=== PATIENT | female | born 1940 | race Caucasian/White ===

== ENCOUNTER 2020-12-12 22:13 | Inpatient (IN) | payer MEDICARE ==
[~2020-12-12] VITALS: Ht 167.6 cm; Wt 73.0 kg
[2020-12-12 22:18] VITALS: BP 119/60
[2020-12-12 23:31] LABS: ABSOLUTE LYMPHOCYTES 1.2 thou/uL (0.8-5.3); ABSOLUTE MONOCYTES 0.7 thou/uL (0.0-1.2); ABSOLUTE NEUTROPHILS 2.6 thou/uL (1.6-8.1); BASOPHILS 0.2 %; EOSINOPHILS 0.1 %; HEMATOCRIT 22.5 % (37.0-47.0); HEMOGLOBIN 7.2 gm/dL (12.0-15.0); LYMPHOCYTES 26.8 %; MCH 30.1 pg (26.0-34.0); MCHC 32.2 g/dL (28.0-37.0); MCV 93.5 fL (80.0-100.0); MONOCYTES 14.8 %; MPV 8.5 fl. (7.2-11.1); NUCLEATED RBCS 0 /100WBC; PLATELET COUNT* 150 thou/uL (150-400); POLYS 58.1 %; RBC 2.41 mil/uL (4.20-5.00); RDW-CV 15.6 % (10.5-14.5); WBC 4.4 thou/uL (4.0-11.0)
[2020-12-12 23:38] LABS: BE 5.4 mmol/L (-2 to +3); PCO2 42.8 mmHg (35.0-45.0)
[2020-12-12 23:39] LABS: CALCIUM 7.8 mg/dL (8.5-10.1); CREATININE 1.5 mg/dL (0.6-1.3); POTASSIUM 3.1 mmol/L (3.5-5.1)
[2020-12-12 23:43] LABS: ALBUMIN 2.8 g/dL (3.4-5.0); MAGNESIUM 1.9 mg/dL (1.8-2.4); TOTAL BILIRUBIN 0.4 mg/dL (<0.1-1.0); TOTAL PROTEIN 6.4 g/dL (6.4-8.2)
[2020-12-12 23:44] LABS: PO2 52.1 mmHg (75.0-100.0)
[2020-12-13 07:59] LABS: URINE BILIRUBIN NEGATIVE (Negative); URINE BLOOD NEGATIVE (Negative); URINE CLARITY CLEAR; URINE COLOR YELLOW; URINE GLUCOSE-RANDOM NEGATIVE (Negative); URINE KETONES NEGATIVE (Negative); URINE LEUKOCYTES-REFLEX 1+ (Negative); URINE NITRITE-REFLEX NEGATIVE (Negative); URINE PROTEIN NEGATIVE (Negative); URINE UROBILINOGEN 0.2 E.U./dl (0.2-1.0)
[2020-12-13 08:11] VITALS: BP 141/49
[2020-12-13 08:43] LABS: BACTERIA-REFLEX 1-9 Few /HPF (None Seen); CRYSTALS None Seen /LPF (None Seen); HYALINE CASTS 0-3 Few /LPF (None Seen); MUCUS 0-3 Light strn/LPF (None Seen); SQUAMOUS 0-3 Few /LPF (0-3); URINE RBC 0-2 Rare /HPF (0-2); URINE WBC-REFLEX 6-15 Few /HPF (0-5)
[2020-12-13] MEDS ORDERED: PERCOCET 10-321 EAC1 PO (10:28)
[2020-12-13] MEDS ORDERED: HYDRALAZINE 5050 MG PO (10:29)
[2020-12-13] MEDS ORDERED: COREG25 M1 PO (10:29)
[2020-12-13] MEDS ORDERED: HYTRIN 2MG CAPSU2 MG PO (10:29)
[2020-12-13] MEDS ORDERED: CLONIDINE HCL0.1 MG PO (10:30)
[2020-12-13] MEDS ORDERED: TESSALON PERLE100 M1 PO (10:30)
[2020-12-13] MEDS ORDERED: KLOR-CON 10 ER10 MEQ PO (10:30)
[2020-12-13] MEDS ORDERED: ELIQUIS2.5 MG PO (10:30)
[2020-12-13] MEDS ORDERED: FOLIC ACID1 MG PO (10:31)
[2020-12-13] MEDS ORDERED: FUROSEMIDE 40 M40 MG PO (10:31)
[2020-12-13] MEDS ORDERED: CELEXA 20 MG TA20 MG PO (10:31)
[2020-12-13] MEDS ORDERED: IRON18 M1 PO (10:32)
[2020-12-13] MEDS ORDERED: LIPITOR40 MG PO (10:32)
[2020-12-13] MEDS ORDERED: NORVASC10 MG PO (10:32)
[2020-12-13] MEDS ORDERED: NEURONTIN 300M300 M2 PO (10:32)
[2020-12-13] MEDS ORDERED: IMDUR 30 MG TAB30 M1 PO (10:32)
[2020-12-13] MEDS ORDERED: ASA81BEC PO (10:32)
[2020-12-13] MEDS ORDERED: VITAMIN B-121000 MC2 SUBLING (10:33)
[2020-12-13] MEDS ORDERED: VITAMIN D-40010 MCG PO (10:34)
--- NOTE | 2020-12-13 11:35 | EKG ---
[place] [address] ELECTROCARDIOGRAM REPORT Name: SANTY CHAMPGANE Room: [place] [address] ADM IN [facility].#: [id number] Admission: 12/12/20 Attend Phys: Omi Mcbride Discharge: Date of : 38 Date of Service: 12/12/20 2307 Report #: [id number] THIS REPORT FOR: //name// [facility] ED Test Date: 2020-12-12 Test Time: 23:07:47 Pat Name: SANTY CHAMPAGNE Department: Room: [facility] Gender: F Director Appointment: MOLLY : 1940 Requested By: Do De La Rosa Order Number: [id number] MD: Benjy Donis Measurements Intervals [place] Rate: 59 P: CO: 31 QRS: 31 QRSD: 167 T: -38 QT: 480 QTc: 476 Interpretive Statements Atrial-paced complexes Right bundle branch block Inferior infarct, age indeterminate Baseline wander in lead(s) III No previous ECG available for comparison Electronically Signed On 12-13-2020 11:35:43 CDT by Benjy Donis [email or web address] <ELECTRONICALLY SIGNED> By: Benjy Donis MD, [facility] 12/13/20 1135 2307 2307 Benjy Donis MD, [facility] /EPI
[2020-12-13 11:54] VITALS: BP 140/56
[2020-12-13 16:21] VITALS: BP 147/60
[2020-12-13 17:10] VITALS: BP 158/59
[2020-12-13 18:00] VITALS: BP 114/46
[2020-12-13 20:30] VITALS: BP 157/58
[2020-12-14 00:49] VITALS: BP 118/55
[2020-12-14 03:58] VITALS: BP 158/54
[2020-12-14 07:53] VITALS: BP 173/58
[2020-12-14 08:57] LABS: HEMATOCRIT 23.5 % (37.0-47.0); HEMOGLOBIN 7.9 gm/dL (12.0-15.0); MCH 31.6 pg (26.0-34.0); MCHC 33.8 g/dL (28.0-37.0); MCV 93.6 fL (80.0-100.0); MPV 8.7 fl. (7.2-11.1); RBC 2.51 mil/uL (4.20-5.00); RDW-CV 15.5 % (10.5-14.5); WBC 8.9 thou/uL (4.0-11.0)
[2020-12-14 09:06] LABS: CALCIUM 8.4 mg/dL (8.5-10.1); CREATININE 1.2 mg/dL (0.6-1.3); POTASSIUM 4.1 mmol/L (3.5-5.1)
[2020-12-14 13:23] VITALS: BP 164/64
[2020-12-14 16:00] VITALS: BP 98/79
[2020-12-14 19:30] VITALS: BP 144/52
[2020-12-15 00:25] VITALS: BP 150/77
[2020-12-15 03:42] VITALS: BP 144/67
[2020-12-15 08:04] VITALS: BP 146/55
[2020-12-15 09:28] LABS: ABSOLUTE MONOCYTES 0.6 thou/uL (0.0-1.2); ABSOLUTE NEUTROPHILS 5.1 thou/uL (1.6-8.1); BASOPHILS 0.3 %; HEMATOCRIT 23.8 % (37.0-47.0); HEMOGLOBIN 7.8 gm/dL (12.0-15.0); LYMPHOCYTES 15.1 %; MCH 30.4 pg (26.0-34.0); MCHC 32.8 g/dL (28.0-37.0); MCV 92.7 fL (80.0-100.0); MONOCYTES 8.9 %; MPV 8.9 fl. (7.2-11.1); NUCLEATED RBCS 0 /100WBC; PLATELET COUNT* 187 thou/uL (150-400); POLYS 75.7 %; RBC 2.57 mil/uL (4.20-5.00); RDW-CV 15.9 % (10.5-14.5); WBC 6.8 thou/uL (4.0-11.0)
[2020-12-15 09:41] LABS: ALBUMIN 2.8 g/dL (3.4-5.0); CALCIUM 9.3 mg/dL (8.5-10.1); CREATININE 1.2 mg/dL (0.6-1.3); POTASSIUM 4.1 mmol/L (3.5-5.1); TOTAL BILIRUBIN 0.4 mg/dL (<0.1-1.0); TOTAL PROTEIN 7.3 g/dL (6.4-8.2)
[2020-12-15 09:48] LABS: APTT 22.4 Seconds (25.0-31.3); PROTIME 10.9 Seconds (9.20-11.50)
[2020-12-15 20:45] VITALS: BP 152/82
[2020-12-16] VITALS (7 sets, daily range): BP systolic 88–149; BP diastolic 49–67
[2020-12-16 05:02] LABS: ABSOLUTE LYMPHOCYTES 0.8 thou/uL (0.8-5.3); ABSOLUTE MONOCYTES 0.6 thou/uL (0.0-1.2); ABSOLUTE NEUTROPHILS 4.7 thou/uL (1.6-8.1); HEMATOCRIT 24.1 % (37.0-47.0); HEMOGLOBIN 7.7 gm/dL (12.0-15.0); LYMPHOCYTES 12.3 %; MCH 29.5 pg (26.0-34.0); MCHC 31.7 g/dL (28.0-37.0); MCV 92.8 fL (80.0-100.0); MONOCYTES 10.6 %; MPV 8.6 fl. (7.2-11.1); NUCLEATED RBCS 0 /100WBC; PLATELET COUNT* 193 thou/uL (150-400); POLYS 77.1 %; RDW-CV 15.7 % (10.5-14.5); WBC 6.1 thou/uL (4.0-11.0)
[2020-12-16 05:23] LABS: ALBUMIN 2.7 g/dL (3.4-5.0); CREATININE 1.3 mg/dL (0.6-1.3); MAGNESIUM 2.1 mg/dL (1.8-2.4); POTASSIUM 4.3 mmol/L (3.5-5.1); TOTAL BILIRUBIN 0.3 mg/dL (<0.1-1.0); TOTAL PROTEIN 7.2 g/dL (6.4-8.2)
--- NOTE | 2020-12-16 15:08 | 2DMMODE ---
[place] [address] 2 D/M-MODE ECHOCARDIOGRAM Name: SANTY CHAMPAGNE Room: [address] IN [facility]#: [id number] Admission: 12/12/20 Attend Phys: Omi Mcbride Discharge: Date of : 38 Date of Service: 12/16/20 1508 Report #: [id number] THIS REPORT FOR: cc: Sinan Keys MD, Usman MD Blick,Benjy Rausch MD [facility] ~ APPROVED REPORT Study performed: 12/16/2020 10:42:31 EXAM: Comprehensive 2D, Doppler, and color-flow Echocardiogram Patient Location: In-Patient Room #: [facility] Status: routine BSA: 1.82 HR: 62 bpm BP: 149/59 mmHg Rhythm: NSR Other Information Study Quality: Good Indications Dyspnea 2D Dimensions IVSd: 11.42 (7-11mm) LVOT Diam: 19.87 (18-24mm) LVDd: 61.58 mm PWd: 11.74 (7-11mm) Ascending Ao: 36.01 (22-36mm) LVDs: 41.89 (25-40mm) Volumes Left Atrial Volume (Systole) LA ESV Index: 36.90 mL/m2 Aortic Valve AoV Peak Haroon.: 1.63 m/s AO Peak Gr.: 10.65 mmHg LVOT Max P.47 mmHg AO Mean Gr.: 5.46 mmHg LVOT Mean P.34 mmHg LVOT Max V: 0.93 m/s AO V2 VTI: 36.84 cm LVOT Mean V: 0.51 m/s JESUS (VTI): 1.90 cm2 LVOT V1 VTI: 22.62 [place] [address] 2 D/M-MODE ECHOCARDIOGRAM Name: SANTY CHAMPAGNE Room: [address]#: [id number] Admission: 12/12/20 Attend Phys: Omi Mcbride Discharge: Date of : 38 Date of Service: 12/16/20 1508 Report #: [id number] E/A Ratio: 0.81 MV Decel. Time: 214.37 ms MV E Max Haroon.: 0.75 m/s MV PHT: 62.17 ms MVA (PHT): 3.54 cm2 TDI E/Lateral E': 7.50 E/Medial E': 12.50 Medial E' Haroon.: 0.06 m/s Lateral E' Haroon.: 0.10 m/s Pulmonary Valve PV Peak Haroon.: 0.97 m/s PV Peak Gr.: 3.75 mmHg Tricuspid Valve RAP Estimate: 5.00 mmHg TR Peak Gr.: 28.57 mmHg RVSP: 33.00 mmHg PA Pressure: 33.00 mmHg Left Ventricle The left ventricle is normal size. There is normal LV segmental wall motion. Mild concentric left ventricular hypertrophy. Left ventricular systolic function is normal. The left ventricular ejection fraction is within the normal range. LVEF is 60-65%. Grade I - abnormal relaxation pattern. Right Ventricle The right ventricle is normal size. The right ventricular systolic function is normal. Pacemaker lead is present in the right ventricle. Atria Left atrium is mildly dilated. The right atrium size is normal. Aortic Valve Mild aortic valve sclerosis. Trace aortic regurgitation. There is no aortic valvular stenosis. Mitral Valve There is mitral annular calcification. The mitral valve is normal in structure. Trace mitral regurgitation. No evidence of mitral valve stenosis. Tricuspid Valve The tricuspid valve is normal in structure. Mild tricuspid regurgitation. estimated pa pressure 35 [place] [address] 2 D/M-MODE ECHOCARDIOGRAM Name: SANTY CHAMPAGNE Tiffanie Room: [address] IN [facility]#: [id number] Admission: 12/12/20 Attend Phys: Omi Mcbride Discharge: Date of : 38 Date of Service: 12/16/20 1508 Report #: [id number] Pulmonic Valve The pulmonary valve is normal in structure. Mild pulmonic regurgitation. Great Vessels The aortic root is normal in size. IVC is normal in size and collapses >50% with inspiration. Pericardium Trace pericardial effusion. <Conclusion> Mild concentric left ventricular hypertrophy. LVEF is 60-65%. Left atrium is mildly dilated. Mild aortic valve sclerosis. Mild tricuspid regurgitation. estimated pa pressure 35 mm Hg Trace pericardial effusion. <ELECTRONICALLY SIGNED> By: Benjy Donis MD, [facility] 12/16/20 1508 1508 1508 Benjy Donis MD, FACC /INF
--- NOTE | 2020-12-16 22:41 | CON ---
[address] [address] CONSULTATION Name: SANTY CHAMPAGNE Tiffanie Room: [address] IN [facility].#: [id number] Admission: 12/12/20 Attend Phys: Teresita Venegas Discharge: Date of : 38 Report #: [id number] THIS REPORT FOR: cc: Sinan Keys MD, Usman MD Pervez, Adeel MD ~ DATE OF CONSULTATION: 12/15/2020 REQUESTING PHYSICIAN: Dr. Garcia. INDICATION FOR CONSULTATION: COVID-19. HISTORY OF PRESENT ILLNESS: An 80-year-old female who has an extensive history of smoking and actively smokes. Does not carry a previous diagnosis of COPD. There is a history of coronary artery disease and has had stents placed. She is also on anticoagulation. The indication for anticoagulation is not fully known to me. It may be for atrial fibrillation. The patient has not been vaccinated for COVID-19. She does have family members that have COVID-19. The patient came in with increasing shortness of breath. She has also had a cough with some sputum production. She does not know the sputum color. She does not have chest pain. She did not describe upper respiratory complaints, fever or chills. She does have some mild swelling of lower extremities. REVIEW OF SYSTEMS: The patient's review of systems for 12 points is negative except as mentioned above. The patient currently is requiring around 2 liters of oxygen to maintain O2 saturation in the low 90s and is no distress at this time. She did cough during my exam, though. The patient also was noted to be significantly anemic with hemoglobin of 7.2 on admission. 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 I do not have a measure of her left ventricular ejection fraction available at this time. Also has a pacemaker in place, has significant cardiomegaly. SOCIAL HISTORY: There is an extensive history of smoking. She still smokes, unable to quantify exactly at this time. No known history of heavy alcohol use or illegal drug use. CURRENT MEDICATIONS: List in [employer] reviewed. HOME MEDICATIONS: List [place] [employer] [place] [address] CONSULTATION Name: SANTY CHAMPAGNE Tiffanie Room: [address]#: [id number] Admission: 12/12/20 Attend Phys: Teresita Venegas Discharge: Date of : 38 Report #: [id number] ALLERGIES: SHE HAS AN ADVERSE REACTION OR ALLERGY TO CODEINE. FAMILY HISTORY: There is a current history of COVID-19 in her family. PHYSICAL EXAMINATION: GENERAL: She was fully awake. VITAL SIGNS: Had a pulse of 63 and a blood pressure of 146/55, respiratory rate is mildly elevated to 20. She is on 2 L nasal cannula, is saturating 93%. She is afebrile with a temperature of 36.9. HEENT: Head is normocephalic and atraumatic. NECK: Does not show raised JVP. CHEST: Breath sounds are bilaterally equal. No added sounds. HEART: Regular. There is no murmur. ABDOMEN: Soft and nontender. EXTREMITIES: Lower extremities, 1+ edema, no calf tenderness. LABORATORY DATA: The patient's lab work as well as chest x-rays in [facility] reviewed. CT head in [facility] also reviewed. ASSESSMENT AND PLAN: 1. Acute hypoxemic respiratory failure secondary to COVID-19. Continue to titrate oxygen, prone positioning if possible, out of bed to chair, avoid supine sleep. 2. COVID-19. Agree with dexamethasone at 6 mg daily as well as remdesivir. Watch LFTs. For now, I decided to hold off on convalescent plasma and Actemra, we do not have available at this time, but regardless, I would hold off on Actemra. We will consider these in case the patient's respiratory status worsens. 3. Pulmonary infiltrates. She is also on ceftriaxone, which I agree with. If possible, can obtain a sputum culture as well as nasal swab for methicillin-resistant Staphylococcus aureus. 4. Coronary artery disease, status post stents/on anticoagulation/possible atrial fibrillation. 5. Active smoker, noted to be on a nicotine patch, may have underlying chronic obstructive pulmonary disease. This time was not actively bronchospastic, so I left her on the albuterol inhaler. In case, her respiratory status worsens, I will have a low threshold of moving him to a negative pressure room for administration of nebulized bronchodilators. 6. Anemia, etiology not known. She is on a proton-pump inhibitor. We will continue. 7. Clostridium difficile prophylaxis, if not contraindicated by the GI service, then I recommend starting her on Lactinex. [address] [address] CONSULTATION Name: SANTY CHAMPAGNE Room: [address]#: [id number] Admission: 12/12/20 Attend Phys: Teresita Venegas Discharge: Date of : 38 Report #: [id number] Thanks for this consultation. <ELECTRONICALLY SIGNED> By: Ham Duran MD 12/16/20 2241 1721 2253Aisabella Duran MD /nt
[2020-12-17 00:44] VITALS: BP 137/63
[2020-12-17 06:24] LABS: HEMATOCRIT 24.5 % (37.0-47.0); HEMOGLOBIN 8.1 gm/dL (12.0-15.0); MCH 30.2 pg (26.0-34.0); MCV 91.7 fL (80.0-100.0); MPV 8.2 fl. (7.2-11.1); NUCLEATED RBCS 0 /100WBC; PLATELET COUNT* 222 thou/uL (150-400); RBC 2.68 mil/uL (4.20-5.00); RDW-CV 15.5 % (10.5-14.5); WBC 8.1 thou/uL (4.0-11.0)
[2020-12-17 06:35] LABS: ALBUMIN 2.9 g/dL (3.4-5.0); CALCIUM 8.6 mg/dL (8.5-10.1); CREATININE 1.4 mg/dL (0.6-1.3); MAGNESIUM 2.2 mg/dL (1.8-2.4); POTASSIUM 4.3 mmol/L (3.5-5.1); PREALBUMIN 17.1 mg/dL (18.0-35.7); TOTAL BILIRUBIN 0.4 mg/dL (<0.1-1.0); TOTAL PROTEIN 7.4 g/dL (6.4-8.2)
[2020-12-17 08:00] VITALS: BP 145/64
[2020-12-17 08:23] LABS: ABSOLUTE LYMPHOCYTES 0.6 thou/uL (0.8-5.3); ABSOLUTE MONOCYTES 0.2 thou/uL (0.0-1.2); ABSOLUTE NEUTROPHILS 7.3 thou/uL (1.6-8.1); PLATELET ESTIMATE ADEQUATE
[2020-12-17 13:04] VITALS: BP 147/61
[2020-12-17 16:00] VITALS: BP 160/65
[2020-12-17 21:04] VITALS: BP 137/56
[2020-12-17 23:44] VITALS: BP 142/62
[2020-12-18 04:00] VITALS: BP 122/49
[2020-12-18 04:56] LABS: ABSOLUTE LYMPHOCYTES 0.7 thou/uL (0.8-5.3); ABSOLUTE MONOCYTES 0.3 thou/uL (0.0-1.2); ABSOLUTE NEUTROPHILS 10.8 thou/uL (1.6-8.1); BASOPHILS 0.3 %; HEMATOCRIT 24.3 % (37.0-47.0); HEMOGLOBIN 7.9 gm/dL (12.0-15.0); LYMPHOCYTES 5.9 %; MCH 29.7 pg (26.0-34.0); MCHC 32.5 g/dL (28.0-37.0); MCV 91.4 fL (80.0-100.0); MONOCYTES 2.2 %; MPV 8.6 fl. (7.2-11.1); NUCLEATED RBCS 0 /100WBC; PLATELET COUNT* 221 thou/uL (150-400); POLYS 91.6 %; RBC 2.66 mil/uL (4.20-5.00); RDW-CV 15.5 % (10.5-14.5); WBC 11.8 thou/uL (4.0-11.0)
[2020-12-18 05:18] LABS: ALBUMIN 2.6 g/dL (3.4-5.0); CALCIUM 8.6 mg/dL (8.5-10.1); CREATININE 1.4 mg/dL (0.6-1.3); POTASSIUM 4.8 mmol/L (3.5-5.1); TOTAL BILIRUBIN 0.3 mg/dL (<0.1-1.0); TOTAL PROTEIN 6.9 g/dL (6.4-8.2)
[2020-12-18 08:00] VITALS: BP 131/53
[2020-12-18 12:57] VITALS: BP 144/62
[2020-12-18 16:54] VITALS: BP 138/66
[2020-12-18 20:00] VITALS: BP 169/59
[2020-12-19 00:25] VITALS: BP 141/64
[2020-12-19 04:07] VITALS: BP 151/68
[2020-12-19 08:00] VITALS: BP 156/68
[2020-12-19 12:31] VITALS: BP 144/49
[2020-12-19 15:05] LABS: ABSOLUTE BASOPHILS 0.1 thou/uL (0.0-0.2); ABSOLUTE LYMPHOCYTES 0.6 thou/uL (0.8-5.3); ABSOLUTE MONOCYTES 0.4 thou/uL (0.0-1.2); ABSOLUTE NEUTROPHILS 8.5 thou/uL (1.6-8.1); BASOPHILS 0.7 %; EOSINOPHILS 0.1 %; HEMATOCRIT 25.2 % (37.0-47.0); LYMPHOCYTES 6.3 %; MCH 29.7 pg (26.0-34.0); MCHC 31.8 g/dL (28.0-37.0); MCV 93.4 fL (80.0-100.0); MONOCYTES 4.6 %; MPV 9.1 fl. (7.2-11.1); NUCLEATED RBCS 0 /100WBC; PLATELET COUNT* 233 thou/uL (150-400); POLYS 88.3 %; RDW-CV 15.9 % (10.5-14.5); WBC 9.7 thou/uL (4.0-11.0)
[2020-12-19 16:14] VITALS: BP 149/52
[2020-12-19 16:27] LABS: ALBUMIN 2.8 g/dL (3.4-5.0); CALCIUM 8.9 mg/dL (8.5-10.1); CREATININE 1.4 mg/dL (0.6-1.3); TOTAL BILIRUBIN 0.4 mg/dL (<0.1-1.0)
[2020-12-19 20:00] VITALS: BP 169/59
[2020-12-20] VITALS: BP 152/66
[2020-12-20 04:00] VITALS: BP 150/60
[2020-12-20 04:49] LABS: HEMATOCRIT 24.6 % (37.0-47.0); HEMOGLOBIN 8.2 gm/dL (12.0-15.0); MCH 30.5 pg (26.0-34.0); MCHC 33.3 g/dL (28.0-37.0); MCV 91.4 fL (80.0-100.0); MPV 8.3 fl. (7.2-11.1); NUCLEATED RBCS 0 /100WBC; PLATELET COUNT* 234 thou/uL (150-400); RBC 2.69 mil/uL (4.20-5.00); RDW-CV 15.3 % (10.5-14.5); WBC 10.2 thou/uL (4.0-11.0)
[2020-12-20 05:12] LABS: ALBUMIN 2.5 g/dL (3.4-5.0); CALCIUM 8.5 mg/dL (8.5-10.1); CREATININE 1.1 mg/dL (0.6-1.3); MAGNESIUM 2.4 mg/dL (1.8-2.4); POTASSIUM 4.5 mmol/L (3.5-5.1); TOTAL BILIRUBIN 0.3 mg/dL (<0.1-1.0); TOTAL PROTEIN 6.6 g/dL (6.4-8.2)
[2020-12-20 05:14] LABS: PREALBUMIN 24.9 mg/dL (18.0-35.7)
[2020-12-20 06:05] LABS: ABSOLUTE EOSINOPHILS 0.1 thou/uL (0.0-0.7); ABSOLUTE LYMPHOCYTES 0.7 thou/uL (0.8-5.3); ABSOLUTE MONOCYTES 0.4 thou/uL (0.0-1.2); ANISOCYTOSIS 1+; PLATELET ESTIMATE ADEQUATE; POIKILOCYTOSIS 1+
[2020-12-20 06:06] LABS: POLYCHROMASIA 1+
[2020-12-20 08:00] VITALS: BP 148/67
[2020-12-20 12:00] VITALS: BP 143/72
[2020-12-20 16:00] VITALS: BP 140/64
[2020-12-20 20:25] VITALS: BP 141/46
[2020-12-21 00:30] VITALS: BP 149/72
[2020-12-21 04:14] LABS: CALCIUM 8.6 mg/dL (8.5-10.1); CREATININE 1.3 mg/dL (0.6-1.3); MAGNESIUM 2.3 mg/dL (1.8-2.4); POTASSIUM 4.4 mmol/L (3.5-5.1)
[2020-12-21 04:17] VITALS: BP 128/49
[2020-12-21 04:28] LABS: ABSOLUTE LYMPHOCYTES 0.7 thou/uL (0.8-5.3); ABSOLUTE MONOCYTES 0.4 thou/uL (0.0-1.2); ABSOLUTE NEUTROPHILS 10.2 thou/uL (1.6-8.1); BASOPHILS 0.1 %; HEMATOCRIT 25.2 % (37.0-47.0); HEMOGLOBIN 8.2 gm/dL (12.0-15.0); MCH 30.1 pg (26.0-34.0); MCHC 32.4 g/dL (28.0-37.0); MCV 92.6 fL (80.0-100.0); MONOCYTES 3.7 %; MPV 8.3 fl. (7.2-11.1); NUCLEATED RBCS 0 /100WBC; PLATELET COUNT* 222 thou/uL (150-400); POLYS 90.2 %; RBC 2.72 mil/uL (4.20-5.00); RDW-CV 15.9 % (10.5-14.5); WBC 11.3 thou/uL (4.0-11.0)
[2020-12-21 10:26] VITALS: BP 142/57
[2020-12-21 12:00] VITALS: BP 139/51
[2020-12-21 16:00] VITALS: BP 138/56
[2020-12-21 19:45] VITALS: BP 130/60
[2020-12-22] VITALS: BP 141/60
[2020-12-22 04:00] VITALS: BP 153/66
[2020-12-22 08:00] VITALS: BP 136/50
[2020-12-22 11:25] VITALS: BP 138/52
[2020-12-22 16:32] VITALS: BP 133/49
[2020-12-22 22:00] VITALS: BP 144/46
[2020-12-23 02:47] VITALS: BP 136/57
[2020-12-23 06:03] VITALS: BP 130/62
[2020-12-23 06:05] LABS: ABSOLUTE LYMPHOCYTES 1.2 thou/uL (0.8-5.3); ABSOLUTE MONOCYTES 0.9 thou/uL (0.0-1.2); ABSOLUTE NEUTROPHILS 8.8 thou/uL (1.6-8.1); BASOPHILS 0.3 %; HEMATOCRIT 25.9 % (37.0-47.0); HEMOGLOBIN 8.5 gm/dL (12.0-15.0); LYMPHOCYTES 10.7 %; MCHC 32.6 g/dL (28.0-37.0); MONOCYTES 7.9 %; MPV 8.2 fl. (7.2-11.1); NUCLEATED RBCS 0 /100WBC; PLATELET COUNT* 201 thou/uL (150-400); POLYS 81.1 %; RBC 2.82 mil/uL (4.20-5.00); RDW-CV 15.7 % (10.5-14.5); WBC 10.9 thou/uL (4.0-11.0)
[2020-12-23 07:12] LABS: ALBUMIN 2.5 g/dL (3.4-5.0); CALCIUM 8.5 mg/dL (8.5-10.1); CREATININE 1.3 mg/dL (0.6-1.3); MAGNESIUM 2.3 mg/dL (1.8-2.4); POTASSIUM 3.6 mmol/L (3.5-5.1); TOTAL BILIRUBIN 0.4 mg/dL (<0.1-1.0); TOTAL PROTEIN 6.3 g/dL (6.4-8.2)
[2020-12-23 08:00] VITALS: BP 146/58
[2020-12-23 12:00] VITALS: BP 114/82
[2020-12-23 16:00] VITALS: BP 126/41
[2020-12-24] VITALS (7 sets, daily range): BP systolic 134–155; BP diastolic 44–61
[2020-12-24 04:13] LABS: HEMATOCRIT 25.2 % (37.0-47.0); MCH 29.3 pg (26.0-34.0); MCHC 31.8 g/dL (28.0-37.0); MCV 92.3 fL (80.0-100.0); MPV 8.4 fl. (7.2-11.1); RBC 2.73 mil/uL (4.20-5.00); RDW-CV 15.8 % (10.5-14.5); WBC 11.6 thou/uL (4.0-11.0)
[2020-12-24 04:53] LABS: ALBUMIN 2.6 g/dL (3.4-5.0); CALCIUM 8.3 mg/dL (8.5-10.1); CREATININE 1.2 mg/dL (0.6-1.3); MAGNESIUM 2.2 mg/dL (1.8-2.4); POTASSIUM 3.4 mmol/L (3.5-5.1); TOTAL BILIRUBIN 0.4 mg/dL (<0.1-1.0); TOTAL PROTEIN 6.2 g/dL (6.4-8.2)
[2020-12-24] MEDS ORDERED: MUCINEX600 MG PO (09:37)
[2020-12-24] MEDS ORDERED: HYDRALAZINE 2525 MG PO (09:37)
[2020-12-24] MEDS ORDERED: CARVEDILOL12.5 MG PO (09:37)
[2020-12-24] MEDS ORDERED: DEXAMETHASONE 22 M1 PO (09:37)
[2020-12-24] MEDS ORDERED: OXYGEN MISCELL (09:44)
[2020-12-25 03:53] VITALS: BP 132/72
[2020-12-25 05:01] VITALS: BP 135/72
[2020-12-25 09:05] VITALS: BP 144/43
[2020-12-25 16:00] VITALS: BP 137/47
[2020-12-25 19:30] VITALS: BP 136/68
[2020-12-26 03:21] VITALS: BP 104/52
[2020-12-26 06:08] VITALS: BP 107/60
[2020-12-26 08:00] VITALS: BP 109/58
[2020-12-26 09:29] LABS: ABSOLUTE LYMPHOCYTES 1.1 thou/uL (0.8-5.3); ABSOLUTE MONOCYTES 0.7 thou/uL (0.0-1.2); ABSOLUTE NEUTROPHILS 9.9 thou/uL (1.6-8.1); BASOPHILS 0.2 %; HEMATOCRIT 24.5 % (37.0-47.0); HEMOGLOBIN 7.8 gm/dL (12.0-15.0); LYMPHOCYTES 9.7 %; MCH 30.1 pg (26.0-34.0); MCHC 31.9 g/dL (28.0-37.0); MCV 94.3 fL (80.0-100.0); MONOCYTES 5.9 %; MPV 8.3 fl. (7.2-11.1); NUCLEATED RBCS 0 /100WBC; PLATELET COUNT* 168 thou/uL (150-400); POLYS 84.2 %; RDW-CV 16.9 % (10.5-14.5); WBC 11.7 thou/uL (4.0-11.0)
[2020-12-26 09:51] LABS: ALBUMIN 2.6 g/dL (3.4-5.0); CALCIUM 8.5 mg/dL (8.5-10.1); CREATININE 1.2 mg/dL (0.6-1.3); POTASSIUM 3.8 mmol/L (3.5-5.1); TOTAL BILIRUBIN 0.4 mg/dL (<0.1-1.0); TOTAL PROTEIN 6.1 g/dL (6.4-8.2)
--- NOTE | 2020-12-26 17:00 | EKG ---
[place] [address] ELECTROCARDIOGRAM REPORT Name: SANTY CHAMPANGE Room: [place] [address] ADM IN .R.#: [id number] Admission: 12/12/20 Attend Phys: Omi Mcbride Discharge: Date of : 38 Date of Service: 12/25/20 0112 Report #: [id number] THIS REPORT FOR: //name// [facility] Test Date: 2020-12-25 Test Time: 01:12:55 Pat Name: SANTY CHAMPAGNE Department: Room: [place] [address] Gender: F Guest Service Aide: TEMI : 1940 Requested By: Tamiko Pisano Order Number: [id number] Reading MD: Asael Martinez Measurements Intervals [place] Rate: 89 P: [place]: 179 QRS: 20 QRSD: 114 T: 260 QT: 430 QTc: 524 Interpretive Statements Atrial-paced complexes Ventricular bigeminy Inferior infarct, age indeterminate Lateral leads are also involved Compared to ECG 12/12/2020 23:07:47 Ventricular premature complex(es) now present Right bundle-branch block no longer present Myocardial infarct finding still present Electronically Signed On 12-26-2020 17:00:03 CDT by Asael Martinez [email or web address] <ELECTRONICALLY SIGNED> By: Asael Martinez MD, [facility] 12/26/20 1700 1 1 Asael Martinez MD, [facility] /EPI
[2020-12-27] VITALS (7 sets, daily range): BP systolic 135–163; BP diastolic 43–66
[2020-12-27 08:28] LABS: ABSOLUTE LYMPHOCYTES 1.1 thou/uL (0.8-5.3); ABSOLUTE MONOCYTES 0.6 thou/uL (0.0-1.2); ABSOLUTE NEUTROPHILS 8.6 thou/uL (1.6-8.1); BASOPHILS 0.1 %; HEMATOCRIT 22.7 % (37.0-47.0); HEMOGLOBIN 7.5 gm/dL (12.0-15.0); LYMPHOCYTES 10.7 %; MCH 30.9 pg (26.0-34.0); MCHC 33.1 g/dL (28.0-37.0); MCV 93.4 fL (80.0-100.0); MONOCYTES 6.2 %; MPV 8.3 fl. (7.2-11.1); NUCLEATED RBCS 0 /100WBC; PLATELET COUNT* 149 thou/uL (150-400); RBC 2.43 mil/uL (4.20-5.00); RDW-CV 17.6 % (10.5-14.5); WBC 10.3 thou/uL (4.0-11.0)
[2020-12-27 08:42] LABS: PREALBUMIN 49.2 mg/dL (18.0-35.7)
[2020-12-27 08:56] LABS: ALBUMIN 2.6 g/dL (3.4-5.0); CALCIUM 8.1 mg/dL (8.5-10.1); CREATININE 1.2 mg/dL (0.6-1.3); POTASSIUM 3.8 mmol/L (3.5-5.1); TOTAL BILIRUBIN 0.4 mg/dL (<0.1-1.0)
[2020-12-27 09:54] LABS: ESR (SEDRATE) 20 mm/hr (0-30)
== END 2020-12-27 15:55 | disposition home health service (06) | DRG 177 ==
LOC: M.ERS 22:13 → M.ORTHSURG 23:52 → M.TBA-ER 23:52 → M.ORTHSURG 12-13 17:30 → M.2W 12-17 02:49 → M.ORTHSURG 12-26 17:30
PROVIDERS: Internal Medicine; Internal Medicine Critical Care Medicine; Internal Medicine Gastroenterology; Personal Emergency Response Attendant; ADMIT Internal Medicine; ATTEND Internal Medicine
PROC: XW033E5 Introduction of Remdesivir Anti-infective into Peripheral Vein, Percutaneous Approach, New Technology Group 5 (ICD-10-PCS; principal; 2020-12-14)
PROC: 5A0935A Assistance with Respiratory Ventilation, Less than 24 Consecutive Hours, High Flow/Velocity Cannula (ICD-10-PCS; principal; 2020-12-14)
PROC: 5A0935A Assistance with Respiratory Ventilation, Less than 24 Consecutive Hours, High Flow/Velocity Cannula (ICD-10-PCS; 2020-12-15)
PROC: 5A0935A Assistance with Respiratory Ventilation, Less than 24 Consecutive Hours, High Flow/Velocity Cannula (ICD-10-PCS; 2020-12-16)
PROC: 5A0935A Assistance with Respiratory Ventilation, Less than 24 Consecutive Hours, High Flow/Velocity Cannula (ICD-10-PCS; 2020-12-17)
PROC: 5A09357 Assistance with Respiratory Ventilation, Less than 24 Consecutive Hours, Continuous Positive Airway Pressure (ICD-10-PCS; 2020-12-17)
PROC: 5A0935A Assistance with Respiratory Ventilation, Less than 24 Consecutive Hours, High Flow/Velocity Cannula (ICD-10-PCS; 2020-12-18)
PROC: 5A09357 Assistance with Respiratory Ventilation, Less than 24 Consecutive Hours, Continuous Positive Airway Pressure (ICD-10-PCS; 2020-12-18)
PROC: 5A0935A Assistance with Respiratory Ventilation, Less than 24 Consecutive Hours, High Flow/Velocity Cannula (ICD-10-PCS; 2020-12-19)
PROC: 5A09357 Assistance with Respiratory Ventilation, Less than 24 Consecutive Hours, Continuous Positive Airway Pressure (ICD-10-PCS; 2020-12-20)
PROC: 5A0935A Assistance with Respiratory Ventilation, Less than 24 Consecutive Hours, High Flow/Velocity Cannula (ICD-10-PCS; 2020-12-20)
PROC: 5A09357 Assistance with Respiratory Ventilation, Less than 24 Consecutive Hours, Continuous Positive Airway Pressure (ICD-10-PCS; 2020-12-21)
PROC: 5A0935A Assistance with Respiratory Ventilation, Less than 24 Consecutive Hours, High Flow/Velocity Cannula (ICD-10-PCS; 2020-12-21)
PROC: 5A09357 Assistance with Respiratory Ventilation, Less than 24 Consecutive Hours, Continuous Positive Airway Pressure (ICD-10-PCS; 2020-12-23)
PROC: 5A09357 Assistance with Respiratory Ventilation, Less than 24 Consecutive Hours, Continuous Positive Airway Pressure (ICD-10-PCS; 2020-12-24)
PROC: 5A0935A Assistance with Respiratory Ventilation, Less than 24 Consecutive Hours, High Flow/Velocity Cannula (ICD-10-PCS; 2020-12-24)
PROC: 5A09357 Assistance with Respiratory Ventilation, Less than 24 Consecutive Hours, Continuous Positive Airway Pressure (ICD-10-PCS; 2020-12-25)
PROC: 5A0935A Assistance with Respiratory Ventilation, Less than 24 Consecutive Hours, High Flow/Velocity Cannula (ICD-10-PCS; 2020-12-25)
PROC: 5A09357 Assistance with Respiratory Ventilation, Less than 24 Consecutive Hours, Continuous Positive Airway Pressure (ICD-10-PCS; 2020-12-26)
DX: U07.1 COVID-19 (principal); J96.01 Acute respiratory failure with hypoxia; J12.82 Pneumonia due to coronavirus disease 2019; G92 Toxic encephalopathy; N39.0 Urinary tract infection, site not specified; I42.9 Cardiomyopathy, unspecified; K56.7 Ileus, unspecified; I10 Essential (primary) hypertension; I25.10 Atherosclerotic heart disease of native coronary artery without angina pectoris; M54.9 Dorsalgia, unspecified; F17.200 Nicotine dependence, unspecified, uncomplicated; J44.9 Chronic obstructive pulmonary disease, unspecified; D50.9 Iron deficiency anemia, unspecified; R63.4 Abnormal weight loss; Z68.26 Body mass index [BMI] 26.0-26.9, adult; I25.2 Old myocardial infarction; Z95.0 Presence of cardiac pacemaker; Z95.5 Presence of coronary angioplasty implant and graft